=== PATIENT | female | born 1985 | race Caucasian/White ===

== ENCOUNTER 2019-12-16 07:37 | Inpatient (IN) | payer BC, MEDICAID ==
[2019-12-16] MEDS ORDERED: Sodium Chloride 0.9% 10 ML Syringe FLUSH PRN (07:41)
[2019-12-16] MEDS ORDERED: Misoprostol 50 MCG (1/2 of 100 MCG) Tab VAG ONE (08:15)
--- NOTE | 2019-12-16 08:57 | PCM.LDHP ---
L&D History of Present Illness - General Date of Service: 12/16/19 Admit Problem/Dx: Patient Status Order with Admit Dx/Problem 12/16/19 07:52 Patient Status [ADT] Routine Admission Diagnosis/Problem Admission Diagnosis/Problem Source of Information: Patient History Limitations: Reports: No Limitations - History of Present Illness Introduction:: This 34 year old presents for induction, LIZETH 12/17/19 39 6/7. History of 3 shoulder dystocia and one face presentation. BPP 09/12 this morning. gestational age on us 40 weeks. Has been domonique on and off for days. GBS neg ABO O pos HIV neg HGB 12.1 plt 229 Covid pending this morning Timing/Duration: Reports: minutes: (3-5) Quality: Reports: Pressure Severity: Mild Improves with: Reports: None Worsens with: Reports: None - Related Data Allergies/Adverse Reactions: Allergies Allergy/AdvReac Type Severity Reaction Status Date / Time No Known Allergies Allergy Verified 10/29/12 02:23 Home Medications: Home Meds Labetalol HCl [Labetalol] 100 mg PO DAILY 01/11/18 [History] Levothyroxine Sodium [Synthroid] 125 mcg PO DAILY 01/11/18 [History] Sertraline [Zoloft] 25 mg PO DAILY 01/11/18 [History] Past Medical History - Past Health History Medical/Surgical History: Denies Medical/Surgical History HEENT History: Reports: None Cardiovascular History: Reports: None Respiratory History: Reports: None Gastrointestinal History: Reports: None Genitourinary History: Reports: None [employer]UFA[employer]URING [employer] History: Reports: : 8 Para: 7 LMP (Approximate): (LIZETH 12/17/19) Musculoskeletal History: Reports: None Neurological History: Reports: None Psychiatric History: Reports: Other (See Below) Other Psychiatric History: ELVIN, mood disorder Endocrine/Metabolic History: Reports: Hypothyroidism Hematologic History: Reports: None Immunologic History: Reports: None Oncologic (Cancer) History: Reports: Thyroid, Other (See Below) Other Oncologic History: papillary thyroid carcinoma Dermatologic History: Reports: None - Infectious Disease History Infectious Disease History: Reports: Chicken Pox - Past Surgical History Head Surgeries/Procedures: Reports: None Cardiovascular Surgical History: Reports: None Endocrine Surgical History: Reports: Thyroidectomy Neurological Surgical History: Reports: None Social & Family History - Caffeine Use Caffeine Use: Reports: Coffee H&P Review of Systems - Review of Systems: Review Of Systems: See Below General: Reports: No Symptoms HEENT: Reports: No Symptoms Pulmonary: Reports: No Symptoms Cardiovascular: Reports: No Symptoms Gastrointestinal: Reports: No Symptoms Genitourinary: Reports: No Symptoms Musculoskeletal: Reports: No Symptoms Skin: Reports: No Symptoms Psychiatric: Reports: No Symptoms Neurological: Reports: No Symptoms Hematologic/Lymphatic: Reports: No Symptoms Immunologic: Reports: No Symptoms L&D Exam - Exam Exam: See Below - Vital Signs Weight: 149 lb 9.6 oz - OB Specific Contraction Intensity: Mild Movement: Active Heart Tones: Present Heart Tones per Min: 152 Heart Rate (FHR) Variability: Moderate (6-25 bmp) Presentation: Vertex Estimated Weight: 8 pounds - Wheatley Score Wheatley Score Cervix Position: Midposition Wheatley Score Consistency: Soft Wheatley Score Effacement: 51-70% Wheatley Score Dilation: 1-2 cm Wheatley Score 's Station: -1 ,0 Wheatley Score Total: 8 - Exam General: Alert, Oriented HEENT: PERRLA, Mucosa Moist & [place], Posterior Pharynx Clear Neck: Supple Lungs: Clear to Auscultation, Normal Respiratory Effort Cardiovascular: Regular Rate, Regular Rhythm GI/Abdominal Exam: Soft, Non-Tender Rectal Exam: Normal Exam Genitourinary: Cervical dilitation, Enlarged uterus Back Exam: Normal Inspection Extremities: Normal Inspection, No Pedal Edema Skin: Warm, Dry Neurological: Cranial Nerves Intact, Reflexes Equal Bilateral Psychiatric: Alert, Normal Affect, Normal Mood - Patient Data Lab Results Last 24 hrs: Laboratory Results - last 24 hr 12/16/19 Range/Units 07:54 WBC 7.0 (4.5-11.0) K/uL RBC 4.53 (3.30-5.50) M/uL Hgb 12.1 (12.0-15.0) g/dL Hct 37.8 (36.0-48.0) % MCV 83 (80-98) fL MCH 27 (27-31) pg MCHC 32 (32-36) % Plt Count 229 (150-400) K/uL Add Manual Diff Yes Neutrophils % (Manual) 59 (36-66) % Band Neutrophils % 13 H (5-11) % Lymphocytes % (Manual) 20 L (24-44) % Monocytes % (Manual) 7 H (2-6) % Eosinophils % (Manual) 1 L (2-4) % Result Diagrams: 12/16/19 07:54 - Problem List (1) Intrauterine SNOMED Code(s): 91382959 ICD Code: Z33.1 - STATE, INCIDENTAL Status: Acute Current Visit: Yes (2) Hypothyroidism SNOMED Code(s): 88004422 ICD Code: E03.9 - HYPOTHYROIDISM, UNSPECIFIED Status: Chronic Current Visit: Yes Problem List Initiated/Reviewed/Updated: Yes Orders Last 24hrs: Active Orders 24 hr Category Date Time Status Patient Status [ADT] Routine ADT 12/16/19 07:52 Active Antiembolic Devices [RC] .Routine Care 12/16/19 07:54 Active May Shower [RC] ASDIRECTED Care 12/16/19 07:52 Active Notify Provider [RC] PRN Care 12/16/19 07:52 Active Peripheral IV Care [RC] . DIRECTED Care 12/16/19 07:42 Active Up ad Laura [RC] ASDIRECTED Care 12/16/19 07:52 Active VTE/DVT Education [RC] Click to Edit Care 12/16/19 07:54 Active Vital Signs [RC] PER UNIT ROUTINE Care 12/16/19 07:52 Active Regular Diet [DIET] Diet 12/16/19 Dinner Active BPP w NST [US] Routine Exams 12/16/19 08:03 Ordered OB Ltd 1 or More Fetus [US] Routine Exams 12/16/19 Ordered CORONAVIRUS COVID-19, JONN Urgent Lab 12/16/19 07:41 Ordered DRUG SCREEN, URINE [URCHEM] Routine Lab 12/16/19 07:41 Ordered UA W/MICROSCOPIC [URIN] Routine Lab 12/16/19 07:41 Ordered Sodium Chloride 0.9% [Saline Flush] Med 12/16/19 07:41 Active 10 ml FLUSH ASDIRECTED PRN DVT/VTE Prophylaxis Reflex [OM.PC] Routine Oth 12/16/19 07:52 Ordered Peripheral IV Insertion Pediatric [OM.PC] Routine Oth 12/16/19 07:41 Ordered Resuscitation Status Routine Resus Stat 12/16/19 07:52 Ordered Medication Orders Sodium Chloride (Saline Flush) 10 ml FLUSH ASDIRECTED PRN PRN Reason: Keep Vein Open Assessment/Plan Comment:: 12/16/19 34 year old 39 6/7 weeks presents for induction CE /-1 50 mcg Miso placed vaginally BPP 09/12 estimated weight 8 pounds monitor for contractions and labor maybe up and about after monitoring desires epidural for pain control\ plan for vaginal delivery
--- NOTE | 2019-12-16 09:27 | US ---
BPP w NST, OB Ltd 1 or More Fetus INDICATION: induction COMPARISON: None FINDINGS: Single live IUP in: Cephalic position. heart rate: 152 BPM. Biophysical profile score: 8/8 BLAIR: 20.6 cm. IMPRESSION: Normal biophysical profile score of 8/8. OB Ltd 1 or More Fetus CLINICAL HISTORY: 41 week 1 day gestation, induction FINDINGS: There is a single viable intrauterine in cephalic position. Placenta is posterior and free of the cervical os.] Fluid index is 20.6. Cervix is not visualized. Average ultrasound age by multiple parameters is 38 weeks 6 days. LIZETH is 12/24/2019. Estimated weight is 3671 g. This is in the 74th percentile by menstrual history IMPRESSION: Viable 38 week 6 day gestation in cephalic position
--- NOTE | 2019-12-16 12:35 | PCM.PNLD ---
Labor Progress Note - VS & Meds Vital Signs: Last Vital Signs Temp 97.6 F 12/16/19 11:00 Pulse 80 12/16/19 11:00 Resp 18 12/16/19 11:00 BP 125/71 12/16/19 11:00 Pulse Ox 99 12/16/19 11:00 Active Medications: Current Medications Oxytocin/Sodium Chloride (Pitocin In Ns 20 Units/1,000 Ml) 20 unit in 1,000 mls @ 999 mls/hr IV TITRATE EDWIN; Protocol Sodium Chloride (Saline Flush) 10 ml FLUSH ASDIRECTED PRN PRN Reason: Keep Vein Open Discontinued Medications Misoprostol (Cytotec) 50 mcg VAG ONETIME ONE Stop: 12/16/19 08:16 Last Admin: 12/16/19 09:03 Dose: 50 mcg Documented by: - Uterine Contractions Uterine Monitoring Mode: External [place] Contraction Frequency (min): 2-3 Contraction Duration (sec): 50-70 Contraction Intensity: Mild to Moderate Uterine Resting Tone: Soft - Monitoring Monitor Mode: Doppler/Auscultation Heart Rate (FHR) Baseline: 150 Heart Rate (FHR) Variability: Moderate (6-25 bmp) Accelerations: Present, 15x15 Decelerations: Variable Strip Review: Category II - Vaginal Exam Dilation (cm): 3 Effacement (Percent): 85 Station: -1 Cervical Position: Anterior Sterile Vaginal Exam Performed By: Usha Rolle Vaginal Exam Comment: progress since this morning - Labor Progress (Free Text) Labor Progress: contractions are stronger, Mariam is flushed About ready for an epidural, will start fluids AROM after epidural and comfortable. Cat two strip, doing position changes Planning for vaginal delivery
[2019-12-16] MEDS ORDERED: ePHEDrine 50 MG/ML SDV IVPUSH PRN (13:47)
[2019-12-16] MEDS ORDERED: Lactated Ringers 1,000 ML IV ONE (13:47)
[2019-12-16] MEDS ORDERED: Ropivacaine 100 ML ONE (14:36)
[2019-12-16] MEDS ORDERED: Ropivacaine 200 MG in Premix Bag 1 BAG EPIDUR SCH (14:36)
--- NOTE | 2019-12-16 15:08 | ANES ---
DATE OF SERVICE: 12/16/2019 Labor Epidural Note I was called this afternoon by OB Department for a young lady requesting a labor epidural who is in for an induction. It is her 8th baby and in for an induction, like I said. She was requesting a labor epidural today. She had had one with her last baby, an epidural, but was one sided. Only her left side was numb, so we discussed the potential for it to happen again, questioning if whether she had had an epidural septum because she said she got zero relief on that right side, so she was pretty nervous and anxious about getting an epidural today. Risks and benefits were again reviewed with the patient. The patient verbalizes understanding and wishes to proceed with the labor epidural at this time. Platelet count was noted to be 229. Fluid bolus was in. Allergies were also noted, and the patient had no significant health history. The patient was then sat at the edge of the bed. Betadine prep x3 to the lumbar region was done. Sterile drape was placed. 1% lidocaine skin wheal and deep was done. A 17-gauge Tuohy needle was inserted at approximately the L4-5 position. Loss of resistance was easily achieved at approximately 4.5 to 5 cm. Negative paresthesia, negative heme, negative CSF were noted. I then passed the catheter easily through the Tuohy needle. Tuohy needle was then withdrawn. Catheter was fully secured at 13 cm at the skin. I then proceeded to give the patient a 4 mL test dose, and then, she was laid in the supine position with left uterine displacement. After several minutes, the patient showed no signs of intravascular injection of the epidural or a subarachnoid block, so I proceeded to give the patient 12 mL of 0.2% ropivacaine bolus via the epidural and started her on a 0.2% ropivacaine drip via the epidural at 12 mL/hour. The patient tolerated the procedure without difficulty. Please refer to the nurse's notes for vital signs. The patient was starting to feel some relief certainly on the right side and maybe a little bit on the left, but we will continue to monitor and encourage her to maybe position herself more left-sided down if her left side was not quite as comfortable. The patient verbalizes understanding and the nurses at the bedside for that instruction. Will be available as needed for the patient. Froilan Castro CRNA /[id number]
[2019-12-16] MEDS ORDERED: Witch Hazel Medicated Pads 100/Jar TOP ONE (16:03)
[2019-12-16] MEDS ORDERED: Lanolin 100% Cream 40 GM Tube TOP ONE ×2 (16:03→18:00)
[2019-12-16] MEDS ORDERED: Hydrocortisone 2.5% Crm 30 GM Tube TOP PRN (16:03)
[2019-12-16] MEDS ORDERED: Benzocaine 20% Top Spray 56 GM Bottle TOP ONE (16:03)
[2019-12-16] MEDS ORDERED: Acetaminophen 325 MG Tab, 50 Tab Bulk Bottle PO PRN (16:03)
[2019-12-16] MEDS ORDERED: Ibuprofen 200 MG Tab, 24 Tab Bulk Bottle PO PRN (16:03)
--- NOTE | 2019-12-16 16:19 | PCM.DEL ---
L & D Note - General Info Date of Service: 12/16/19 Mother's Due Date: 12/17/19 - Delivery Note Labor: Spontaneous Cervical Ripening Method: Misoprostil Delivery Outcome: Livebirth Delivery Method: Spontaneous Vaginal Delivery-Single Infant Delivery Mode: Spontaneous Presentation: Vertex Nuchal Cord: None Anesthesia Type: Epidural Amniotic Fluid Description: Clear Episiotomy Type: None Laceration: None Placenta: Intact, Expressed Cord: 3 Vessels Estimated Blood Loss: 300 Resuscitation Needed: No : Bulb Syringe, Stimulated, Warmed, [place] Used Provider: Usha Rolle Score 1 min: 9 Score 5 min: 10 Second Stage Interventions: Reports: Laboring Down, Pushing Effectively Delivery Comments (Free Text/Narrative):: 12/16/19 This 34 year old G8 now P8 who is 39 6/7 weeks gestation delivered a viable female infant vis over an intact perineum at 1522 in LYNDA position. THe was placed on mother's chest where she cried spontaneously. Delayed cord clamping was done. Baby was bulb suctioned and dried and stimulated. She had Apgars of 9 & 10. Once the cord was cut baby went to breast. The placenta was expressed spontaneously intact and had a marginal cord insertion. Passive management of the third stage was used and placenta delivered without significant bleeding. No lacerations of the perineum, cervix, vagina or rectum were found. EBL: 300cc Mother and baby to post in stable condition. First stage 6562-3525 Second stage 1644-7500, One push at 1522 for delivery of the head. Third stage 2725-6524 Weight 8-10 Beautiful delivery without complications Induction Criteria - Wheatley Score Wheatley Score Dilation: 3-4 cm Wheatley Score Effacement: 60-70% Wheatley Score 's Station: -1 ,0 Wheatley Score Consistency: Soft Wheatley Score Cervix Position: Midposition Wheatley Score Total: 9 Wheatley Score Presenting Part: Reports: Cephalic - Induction Gestational Age >/= 39 wks: Yes Estimated Pelvis: Reports: Adequate Reassuring Monitoring Strip: Yes Absence of Tachy Systole: Yes - General Info Date of Service: 12/16/19 Admission Dx/Problem (Free Text): Patient Status Order with Admit Dx/Problem 12/16/19 07:52 Patient Status [ADT] Routine Admission Diagnosis/Problem Admission Diagnosis/Problem Functional Status: Reports: Pain Controlled - Review of Systems General: Reports: No Symptoms HEENT: Reports: No Symptoms Pulmonary: Reports: No Symptoms Cardiovascular: Reports: No Symptoms Gastrointestinal: Reports: No Symptoms Genitourinary: Reports: No Symptoms Musculoskeletal: Reports: No Symptoms Skin: Reports: No Symptoms Neurological: Reports: No Symptoms Psychiatric: Reports: No Symptoms - Patient Data Vitals - Most Recent: Last Vital Signs Temp 97.6 F 12/16/19 11:00 Pulse 80 12/16/19 11:00 Resp 18 12/16/19 11:00 BP 125/71 12/16/19 11:00 Pulse Ox 99 12/16/19 11:00 Weight - Most Recent: 149 lb 14.4 oz Lab Results Last 24 Hours: Laboratory Results - last 24 hr 12/16/19 12/16/19 12/16/19 Range/Units 07:41 07:41 07:54 WBC 7.0 (4.5-11.0) K/uL RBC 4.53 (3.30-5.50) M/uL Hgb 12.1 (12.0-15.0) g/dL Hct 37.8 (36.0-48.0) % MCV 83 (80-98) fL MCH 27 (27-31) pg MCHC 32 (32-36) % Plt Count 229 (150-400) K/uL Add Manual Diff Yes Neutrophils % (Manual) 59 (36-66) % Band Neutrophils % 13 H (5-11) % Lymphocytes % (Manual) 20 L (24-44) % Monocytes % (Manual) 7 H (2-6) % Eosinophils % (Manual) 1 L (2-4) % Urine Color Yellow (YELLOW) Urine Appearance Clear (CLEAR) Urine pH 6.5 (5.0-8.0) Ur Specific [place] 1.020 (1.008-1.030) Urine Protein Negative (NEGATIVE) mg/dL Urine Glucose (UA) Negative (NEGATIVE) mg/dL Urine Ketones Negative (NEGATIVE) mg/dL Urine Occult Blood Negative (NEGATIVE) Urine Nitrite Negative (NEGATIVE) Urine Bilirubin Negative (NEGATIVE) Urine Urobilinogen 0.2 (0.2-1.0) EU/dL Ur Leukocyte Esterase Negative (NEGATIVE) Urine RBC Not seen (0-5) Urine WBC Not seen (0-5) Ur Epithelial Cells Rare Amorphous Sediment Rare Urine Bacteria Rare Urine Mucus Rare Urine Other See note Urine Opiates Screen Negative (NEGATIVE) Ur Oxycodone Screen Negative (NEGATIVE) Urine Methadone Screen Negative (NEGATIVE) Ur Propoxyphene Screen Negative (NEGATIVE) Ur Barbiturates Screen Negative (NEGATIVE) Ur Tricyclics Screen Negative (NEGATIVE) Ur Phencyclidine Scrn Negative (NEGATIVE) Ur Amphetamine Screen Negative (NEGATIVE) U Methamphetamines Scrn Negative (NEGATIVE) Urine MDMA Screen Negative (NEGATIVE) U Benzodiazepines Scrn Negative (NEGATIVE) U Cocaine Metab Screen Negative (NEGATIVE) U Marijuana (THC) Screen Negative (NEGATIVE) Med Orders - Current: Current Medications Acetaminophen (Tylenol Bulk Bottle) 0 mg PO Q4H PRN PRN Reason: Pain Ephedrine Sulfate (Ephedrine Sulfate) 10 mg IVPUSH ASDIRECTED PRN PRN Reason: Hypotension Hydrocortisone (Proctozone-Hc 2.5% Crm) 1 gm TOP ASDIRECTED PRN PRN Reason: Itching Oxytocin/Sodium Chloride (Pitocin In Ns 20 Units/1,000 Ml) 20 unit in 1,000 mls @ 999 mls/hr IV TITRATE EDWIN; Protocol Ibuprofen (Motrin Bulk Bottle) 600 mg PO Q6H PRN PRN Reason: Pain Sodium Chloride (Saline Flush) 10 ml FLUSH ASDIRECTED PRN PRN Reason: Keep Vein Open Discontinued Medications Benzocaine (Swrs-I-Rkogldo 20% [place]) 0 gm TOP Q4H ONE Stop: 12/16/19 16:04 Emollient Ointment (Lansinoh Hpa) 1 gm TOP ASDIRECTED ONE Stop: 12/16/19 16:04 Lactated Ringer's (Ringers, Lactated) 1,000 mls @ 999 mls/hr IV .BOLUS ONE Stop: 12/16/19 14:47 Ropivacaine (Naropin 0.2%) Confirm Administered Dose 100 mls @ as directed .ROUTE .STK-MED ONE Stop: 12/16/19 14:37 Misoprostol (Cytotec) 50 mcg VAG ONETIME ONE Stop: 12/16/19 08:16 Last Admin: 12/16/19 09:03 Dose: 50 mcg Documented by: Garry [facility]) 1 pad TOP ASDIRECTED ONE Stop: 12/16/19 16:04 - Exam General: Alert, Oriented HEENT: Pupils Equal, Pupils Reactive Neck: Supple Lungs: Clear to Auscultation, Normal Respiratory Effort Cardiovascular: Regular Rate, Regular Rhythm GI/Abdominal Exam: Normal Bowel Sounds, Soft, Non-Tender (Female) Exam: Cervical Dilatation, Enlarged Uterus, Vaginal Bleeding Back Exam: Full Range of Motion Extremities: Normal Range of Motion, No Pedal Edema, Normal Capillary Refill Skin: Warm, Dry, Intact Neurological: No New Focal Deficit Psy/Mental Status: Alert, Normal Affect, Normal Mood - Problem List & Annotations (1) Intrauterine SNOMED Code(s): 28926334 Code(s): Z33.1 - STATE, INCIDENTAL Status: Acute Current Visit: Yes (2) Hypothyroidism SNOMED Code(s): 31396238 Code(s): E03.9 - HYPOTHYROIDISM, UNSPECIFIED Status: Chronic Current Visit: Yes (3) Normal labor SNOMED Code(s): 23766715 Code(s): O80 - ENCOUNTER FOR FULL-TERM UNCOMPLICATED DELIVERY; Z37.9 - O UTCOME OF DELIVERY, UNSPECIFIED Status: Acute Current Visit: Yes (4) Vaginal delivery SNOMED Code(s): 092532794 Code(s): O80 - ENCOUNTER FOR FULL-TERM UNCOMPLICATED DELIVERY Status: Acute Current Visit: Yes (5) Breast fed SNOMED Code(s): 934009756 Code(s): Z78.9 - OTHER SPECIFIED HEALTH STATUS Status: Acute Current Visit: Yes - Problem List Review Problem List Initiated/Reviewed/Updated: Yes - My Orders Last 24 Hours: My Active Orders 12/16/19 OB Ltd 1 or More Fetus [US] Routine 12/16/19 07:41 CORONAVIRUS COVID-19, JONN Urgent Sodium Chloride 0.9% [Saline Flush] 10 ml FLUSH ASDIRECTED PRN Peripheral IV Insertion Pediatric [OM.PC] Routine 12/16/19 07:42 Peripheral IV Care [RC] . DIRECTED 12/16/19 07:52 May Shower [RC] ASDIRECTED Notify Provider [RC] PRN Up ad Laura [RC] ASDIRECTED Vital Signs [RC] PER UNIT ROUTINE DVT/VTE Prophylaxis Reflex [OM.PC] Routine Resuscitation Status Routine 12/16/19 07:54 Antiembolic Devices [RC] .Routine VTE/DVT Education [RC] Click to Edit 12/16/19 10:30 Oxytocin/Normal Saline [Pitocin in NS 20 Units/1,000 ML] 20 unit in 1,000 ml IV TITRATE 12/16/19 13:47 ePHEDrine [ePHEDrine sulfate] 10 mg IVPUSH ASDIRECTED PRN 12/16/19 13:48 Communication Order [RC] ASDIRECTED Local Anesthetic Infusion Pump [RC] ASDIRECTED PCEA Epidural [RC] ASDIRECTED PCEA Epidural [RC] ASDIRECTED Urinary Catheter Assessment [RC] ASDIRECTED Epidural Catheter Management [OM.PC] Urgent 12/16/19 14:00 Insert Urinary Catheter [OM.PC] ASDIRECTED 12/16/19 16:03 Patient Status [ADT] Routine Vital Signs [RC] PFP Acetaminophen [Tylenol Bulk Bottle] See Dose Instructions PO Q4H PRN Hydrocortisone [Proctozone-HC 2.5% Crm] 1 gm TOP ASDIRECTED PRN Ibuprofen [Motrin Bulk Bottle] 600 mg PO Q6H PRN 12/16/19 Dinner Regular Diet [DIET] 12/17/19 05:11 CBC WITH AUTO DIFF [HEME] AM - Assessment Assessment:: 12/16/19 34 year old without complications female , - Plan Plan:: 12/16/19 34 year old 39 6/7 weeks presents for induction CE /-1 50 mcg Miso placed vaginally BPP 8/8 estimated weight 8 pounds monitor for contractions and labor maybe up and about after monitoring desires epidural for pain control\ plan for vaginal delivery 12/16/19 Routine cares CBC in am 24 hour stay
[2019-12-16] MEDS ORDERED: Witch Hazel Medicated Pads 100/Jar TOP PRN (18:00)
[2019-12-16] MEDS ORDERED: Benzocaine 20% Top Spray 56 GM Bottle TOP PRN (20:00)
[2019-12-17 08:16] VITALS: PULSE 78
--- NOTE | 2019-12-17 08:16 | PCM.PNPP ---
- General Info Date of Service: 12/17/19 Functional Status: Reports: Pain Controlled - Review of Systems General: Reports: No Symptoms HEENT: Reports: No Symptoms Pulmonary: Reports: No Symptoms Cardiovascular: Reports: No Symptoms Gastrointestinal: Reports: No Symptoms Genitourinary: Reports: No Symptoms Musculoskeletal: Reports: No Symptoms Skin: Reports: No Symptoms Neurological: Reports: No Symptoms Psychiatric: Reports: No Symptoms - General Info Date of Service: 12/17/19 - Patient Data Vital Signs - Most Recent: Last Vital Signs Temp 35.7 C L 12/17/19 02:25 Pulse 62 12/17/19 02:25 Resp 16 12/17/19 02:25 BP 103/62 12/17/19 02:25 Pulse Ox 99 12/17/19 02:25 Weight - Most Recent: 67.993 kg Lab Results - Last 24 Hours: Laboratory Results - last 24 hr 12/16/19 12/16/19 12/16/19 Range/Units 07:41 07:41 07:54 WBC 7.0 (4.5-11.0) K/uL RBC 4.53 (3.30-5.50) M/uL Hgb 12.1 (12.0-15.0) g/dL Hct 37.8 (36.0-48.0) % MCV 83 (80-98) fL MCH 27 (27-31) pg MCHC 32 (32-36) % Plt Count 229 (150-400) K/uL Neut % (Auto) (36-66) % Lymph % (Auto) (24-44) % Pepin % (Auto) (2-6) % Eos % (Auto) (2-4) % Baso % (Auto) (0-1) % Add Manual Diff Yes Neutrophils % (Manual) 59 (36-66) % Band Neutrophils % 13 H (5-11) % Lymphocytes % (Manual) 20 L (24-44) % Monocytes % (Manual) 7 H (2-6) % Eosinophils % (Manual) 1 L (2-4) % Urine Color Yellow (YELLOW) Urine Appearance Clear (CLEAR) Urine pH 6.5 (5.0-8.0) Ur Specific [place] 1.020 (1.008-1.030) Urine Protein Negative (NEGATIVE) mg/dL Urine Glucose (UA) Negative (NEGATIVE) mg/dL Urine Ketones Negative (NEGATIVE) mg/dL Urine Occult Blood Negative (NEGATIVE) Urine Nitrite Negative (NEGATIVE) Urine Bilirubin Negative (NEGATIVE) Urine Urobilinogen 0.2 (0.2-1.0) EU/dL Ur Leukocyte Esterase Negative (NEGATIVE) Urine RBC Not seen (0-5) Urine WBC Not seen (0-5) Ur Epithelial Cells Rare Amorphous Sediment Rare Urine Bacteria Rare Urine Mucus Rare Urine Other See note Urine Opiates Screen Negative (NEGATIVE) Ur Oxycodone Screen Negative (NEGATIVE) Urine Methadone Screen Negative (NEGATIVE) Ur Propoxyphene Screen Negative (NEGATIVE) Ur Barbiturates Screen Negative (NEGATIVE) Ur Tricyclics Screen Negative (NEGATIVE) Ur Phencyclidine Scrn Negative (NEGATIVE) Ur Amphetamine Screen Negative (NEGATIVE) U Methamphetamines Scrn Negative (NEGATIVE) Urine MDMA Screen Negative (NEGATIVE) U Benzodiazepines Scrn Negative (NEGATIVE) U Cocaine Metab Screen Negative (NEGATIVE) U Marijuana (THC) Screen Negative (NEGATIVE) 12/17/19 Range/Units 05:50 WBC 8.3 (4.5-11.0) K/uL RBC 4.06 (3.30-5.50) M/uL Hgb 10.8 L (12.0-15.0) g/dL Hct 34.0 L (36.0-48.0) % MCV 84 (80-98) fL MCH 27 (27-31) pg MCHC 32 (32-36) % Plt Count 184 (150-400) K/uL Neut % (Auto) 71 H (36-66) % Lymph % (Auto) 20 L (24-44) % Pepin % (Auto) 7 H (2-6) % Eos % (Auto) 1 L (2-4) % Baso % (Auto) 0 (0-1) % Add Manual Diff Neutrophils % (Manual) (36-66) % Band Neutrophils % (5-11) % Lymphocytes % (Manual) (24-44) % Monocytes % (Manual) (2-6) % Eosinophils % (Manual) (2-4) % Urine Color (YELLOW) Urine Appearance (CLEAR) Urine pH (5.0-8.0) Ur Specific [place] (1.008-1.030) Urine Protein (NEGATIVE) mg/dL Urine Glucose (UA) (NEGATIVE) mg/dL Urine Ketones (NEGATIVE) mg/dL Urine Occult Blood (NEGATIVE) Urine Nitrite (NEGATIVE) Urine Bilirubin (NEGATIVE) Urine Urobilinogen (0.2-1.0) EU/dL Ur Leukocyte Esterase (NEGATIVE) Urine RBC (0-5) Urine WBC (0-5) Ur Epithelial Cells Amorphous Sediment Urine Bacteria Urine Mucus Urine Other Urine Opiates Screen (NEGATIVE) Ur Oxycodone Screen (NEGATIVE) Urine Methadone Screen (NEGATIVE) Ur Propoxyphene Screen (NEGATIVE) Ur Barbiturates Screen (NEGATIVE) Ur Tricyclics Screen (NEGATIVE) Ur Phencyclidine Scrn (NEGATIVE) Ur Amphetamine Screen (NEGATIVE) U Methamphetamines Scrn (NEGATIVE) Urine MDMA Screen (NEGATIVE) U Benzodiazepines Scrn (NEGATIVE) U Cocaine Metab Screen (NEGATIVE) U Marijuana (THC) Screen (NEGATIVE) Med Orders - Current: Current Medications Acetaminophen (Tylenol Bulk Bottle) 0 mg PO Q4H PRN PRN Reason: Pain Last Admin: 12/16/19 19:05 Dose: 325 mg Documented by: Benzocaine (Hjet-B-Vulslns 20% Watts) 0 gm TOP Q4H PRN PRN Reason: PAIN Ephedrine Sulfate (Ephedrine Sulfate) 10 mg IVPUSH ASDIRECTED PRN PRN Reason: Hypotension Hydrocortisone (Proctozone-Hc 2.5% Crm) 1 gm TOP ASDIRECTED PRN PRN Reason: Itching Oxytocin/Sodium Chloride (Pitocin In Ns 20 Units/1,000 Ml) 20 unit in 1,000 mls @ 999 mls/hr IV TITRATE EDWIN; Protocol Ibuprofen (Motrin Bulk Bottle) 600 mg PO Q6H PRN PRN Reason: Pain Last Admin: 12/16/19 19:05 Dose: 600 mg Documented by: Sodium Chloride (Saline Flush) 10 ml FLUSH ASDIRECTED PRN PRN Reason: Keep Vein Open Witch Ailyn (Tucks) 1 pad TOP ASDIRECTED PRN PRN Reason: HEMORRHOIDS Discontinued Medications Benzocaine (Sxbe-M-Fkppyum 20% Watts) 0 gm TOP Q4H ONE Stop: 12/16/19 16:04 Last Admin: 12/16/19 22:56 Dose: Not Given Documented by: Emollient Ointment (Lansinoh Hpa) 1 gm TOP ASDIRECTED ONE Stop: 12/16/19 16:04 Last Admin: 12/16/19 22:56 Dose: Not Given Documented by: Emollient Ointment (Lansinoh Hpa) 1 gm TOP ASDIRECTED ONE Stop: 12/16/19 18:01 Last Admin: 12/16/19 22:57 Dose: Not Given Documented by: Lactated Ringer's (Ringers, Lactated) 1,000 mls @ 999 mls/hr IV .BOLUS ONE Stop: 12/16/19 14:47 Last Admin: 12/16/19 18:17 Dose: 999 mls/hr Documented by: Ropivacaine (Naropin 0.2%) Confirm Administered Dose 100 mls @ as directed .ROUTE .STK-MED ONE Stop: 12/16/19 14:37 Ropivacaine 200 mg/ Premix 100 mls @ 12 mls/hr EPIDUR ASDIRECTED EDWIN Stop: 12/16/19 15:30 Misoprostol (Cytotec) 50 mcg VAG ONETIME ONE Stop: 12/16/19 08:16 Last Admin: 12/16/19 09:03 Dose: 50 mcg Documented by: Garry Lockett) 1 pad TOP ASDIRECTED ONE Stop: 12/16/19 16:04 Last Admin: 12/16/19 22:56 Dose: Not Given Documented by: - Interaction Disposition, : in Room with Family Infant Interaction: Holding Feeding: Breastfed Infant; Nursed Well Support Person: - Recovery Exam Fundal Tone: Firm Fundal Level: At Umbilicus Fundal Placement: Right Lochia Amount: Moderate Lochia Color: Rubra/Red Perineum Description: Intact, Minimal Bruising/Swelling Episiotomy/Laceration: None Bladder Status: Voiding Urinary Elimination: Voided - Exam General: Alert, Oriented HEENT: Pupils Equal, Pupils Reactive, Mucous Membr. Moist/[place] Neck: Supple Lungs: Clear to Auscultation, Normal Respiratory Effort Cardiovascular: Regular Rate, Regular Rhythm GI/Abdominal Exam: Normal Bowel Sounds, Soft, No Distention, No Mass, Pelvis Stable Extremities: Normal Inspection, Normal Range of Motion, Non-Tender, No Pedal Edema, Normal Capillary Refill Skin: Warm, Dry, Intact Neurological: No New Focal Deficit Psy/Mental Status: Alert, Normal Affect, Normal Mood - Problem List & Annotations (1) Breast fed SNOMED Code(s): 828828516 Code(s): Z78.9 - OTHER SPECIFIED HEALTH STATUS Status: Acute Current Visit: Yes (2) Intrauterine SNOMED Code(s): 79698422 Code(s): Z33.1 - STATE, INCIDENTAL Status: Acute Current Visit: Yes (3) Normal labor SNOMED Code(s): 52031911 Code(s): O80 - ENCOUNTER FOR FULL-TERM UNCOMPLICATED DELIVERY; Z37.9 - OUTCOME OF DELIVERY, UNSPECIFIED Status: Acute Current Visit: Yes (4) Vaginal delivery SNOMED Code(s): 643979345 Code(s): O80 - ENCOUNTER FOR FULL-TERM UNCOMPLICATED DELIVERY Status: Acute Current Visit: Yes (5) Hypothyroidism SNOMED Code(s): 89287104 Code(s): E03.9 - HYPOTHYROIDISM, UNSPECIFIED Status: Chronic Current Visit: Yes (6) Anxiety SNOMED Code(s): 37700811 Code(s): F41.9 - ANXIETY DISORDER, UNSPECIFIED Status: Acute Current Visit: No - Problem List Review Problem List Initiated/Reviewed/Updated: Yes - Assessment Assessment:: 12/16/19 34 year old without complications female , 12/16/19 day 1, no complications FF and bleeding light going very well Hgb 10.8 No perineal pain - Plan Plan:: 12/16/19 34 year old 39 6/7 weeks presents for induction CE /-1 50 mcg Miso placed vaginally BPP 8 estimated weight 8 pounds monitor for contractions and labor maybe up and about after monitoring desires epidural for pain control\ plan for vaginal delivery 12/16/19 Routine cares CBC in am 24 hour stay 12/17/19 Continue routine cares support if needed Discharge home today after 24 hours 6 week check
[2019-12-17 12:02] VITALS: BP 121/75
== END 2019-12-17 16:15 | disposition home or self-care (01) | DRG 560 ==
LOC: JP.OB 07:37 → OBSVTOIN 15:22 → JP.OB 15:22 → JP.MS 17:55
PROVIDERS: ADMIT Nurse Practitioner Family; ATTEND Nurse Practitioner Family
PROC: 10E0XZZ Delivery of Products of Conception, External Approach (ICD-10-PCS; principal; 2019-12-16)
PROC: 3E0P7VZ Introduction of Hormone into Female Reproductive, Via Natural or Artificial Opening (ICD-10-PCS; 2019-12-16)
DX: O99.284 Endocrine, nutritional and metabolic diseases complicating childbirth (principal); Z3A.39 39 weeks gestation of pregnancy; Z37.0 Single live birth; E03.9 Hypothyroidism, unspecified; O99.344 Other mental disorders complicating childbirth; F41.9 Anxiety disorder, unspecified
CPT/HCPCS: 36415; 59409; 76815; 76815-26; 76818; 76818-26; 80305-QW; 81001; 85025; 99211; A9270-GY; J2795; J7120

== ENCOUNTER 2021-03-06 21:54 | Inpatient (IN) | payer BC, MEDICAID ==
[2021-03-06] MEDS ORDERED: Sodium Chloride 0.9% 10 ML Syringe FLUSH PRN (21:55)
[2021-03-06] MEDS ORDERED: Oxytocin 10 Units/1 ML SDV IM ONE (21:55)
[2021-03-06] MEDS ORDERED: Tranexamic Acid 1,000 MG in Sodium Chloride 0.9% 50 ML IV PRN (21:55)
[2021-03-06] MEDS ORDERED: Lactated Ringers 1,000 ML IV SCH (22:00)
[2021-03-06] MEDS ORDERED: Ondansetron 4 MG/2 ML SDV IVPUSH PRN (22:20)
[2021-03-06] MEDS ORDERED: Ondansetron 4 MG/2 ML SDV ONE (22:29)
[2021-03-06] MEDS ORDERED: Ropivacaine 0 ML ONE (22:44)
[2021-03-06 22:53] LABS: CORONAVIRUS COVID-19 NAA POSITIVE (NEGATIVE)
[2021-03-07] MEDS ORDERED: Witch Hazel Medicated Pads 100/Jar TOP PRN (00:39)
[2021-03-07] MEDS ORDERED: Benzocaine 20% Top Spray 56 GM Bottle TOP PRN (00:39)
[2021-03-07] MEDS ORDERED: Lanolin 100% Cream 40 GM Tube TOP PRN (00:39)
[2021-03-07] MEDS ORDERED: Acetaminophen 325 MG Tab, 50 Tab Bulk Bottle PO PRN (00:42)
[2021-03-07] MEDS ORDERED: Ibuprofen 200 MG Tab, 24 Tab Bulk Bottle PO PRN (00:42)
[2021-03-07 02:52] VITALS: BP 136/88; PULSE 86
== END 2021-03-07 03:55 | disposition left against medical advice (07) | DRG 560 ==
LOC: JP.OB 21:54 → OBSVTOIN 21:55 → JP.MS 03-07 01:00 → JP.OB 03-07 01:00
PROVIDERS: ADMIT Obstetrics & Gynecology; ATTEND Obstetrics & Gynecology
PROC: 10E0XZZ Delivery of Products of Conception, External Approach (ICD-10-PCS; principal; 2021-03-06)
PROC: 3E0R3BZ Introduction of Anesthetic Agent into Spinal Canal, Percutaneous Approach (ICD-10-PCS; 2021-03-06)
PROC: 00HU33Z Insertion of Infusion Device into Spinal Canal, Percutaneous Approach (ICD-10-PCS; 2021-03-06)
DX: O42.02 Full-term premature rupture of membranes, onset of labor within 24 hours of rupture (principal); Z37.0 Single live birth; O98.52 Other viral diseases complicating childbirth; U07.1 COVID-19; O99.284 Endocrine, nutritional and metabolic diseases complicating childbirth; O99.824 Streptococcus B carrier state complicating childbirth; E03.9 Hypothyroidism, unspecified; O48.0 Post-term pregnancy; F39 Unspecified mood [affective] disorder; O99.344 Other mental disorders complicating childbirth; F41.1 Generalized anxiety disorder; Z3A.41 41 weeks gestation of pregnancy; Z79.890 Hormone replacement therapy
CPT/HCPCS: 0241U; 36415; 80305-QW; 81001; 85027; 86850; 86900; 86901; A9270-GY; J2405; J2795; J7120